=== PATIENT | male | born 1965 | race Caucasian/White ===

== ENCOUNTER 2024-01-09 21:18 | Inpatient (IN) | payer OTHER ==
[~2024-01-09] VITALS: Ht 177.8 cm; Wt 45.4 kg
[2024-01-09] MEDS: VANCOMYCIN 1,000 MG in DEXTROSE 5% 250 ML IV ONE (01:10)
[2024-01-09 21:18] VITALS: BP 120/70; PULSE 112; RESP 24; TEMP 99; O2SAT 98
[2024-01-09 21:40] VITALS: PULSE 126; RESP 23; O2SAT 97
[2024-01-09] MEDS ORDERED: cefTRIAXone 1,000 MG VIAL ONE (21:47)
[2024-01-09] MEDS: cefTRIAXone 1,000 MG in DEXT 5% MINI-BAG PLUS 50 ML IV ONE (22:07)
[2024-01-09] MEDS: NACL 0.9% 2,000 ML IV ONE (22:22)
[2024-01-09 22:29] LABS: CALCIUM 10.2 mg/dL (8.5-10.1); CARBON DIOXIDE 30.8 mmol/L (21-32); CREATININE 0.6 mg/dL (0.6-1.3); POTASSIUM 3.8 mmol/L (3.5-5.1)
[2024-01-09 22:49] LABS: BASOPHILS % (AUTO) 0.1 % (0.0-2.0); HEMATOCRIT 28.6 % (36-52); HEMOGLOBIN 9.3 g/dL (12.0-18.0); LYMPHOCYTES # (AUTO) 1.6 K/uL (2.0-11.5); LYMPHOCYTES % (AUTO) 11.7 % (20.5-51.1); MEAN CORPUSCULAR HEMOGLOBIN 26 pg (27-31); MEAN CORPUSCULAR HGB CONC 32 g/dL (33-37); MEAN CORPUSCULAR VOLUME 79.4 fL (80-94); MONOCYTES # (AUTO) 1.8 K/uL (0.8-1.0); MONOCYTES % (AUTO) 13.6 % (1.7-9.3); NEUTROPHILS # (AUTO) 10.1 K/uL (1.8-7.7); NEUTROPHILS % (AUTO) 74.6 % (42.2-75.2); PLATELET COUNT (AUTO) 215 K/uL (140-450); RED BLOOD CELL COUNT(AUTO) 3.61 MIL/uL (4.20-6.10); RED CELL DISTRIBUTION WIDTH 21.2 % (11.6-13.7); WHITE BLOOD COUNT (AUTO) 13.5 K/uL (4.8-10.8)
[2024-01-09 23:00] LABS: LACTIC ACID 1.6 mmol/L (0.4-2.0)
[2024-01-09 23:16] LABS: FLU A ANTIGEN negative (NEGATIVE); FLU B ANTIGEN NEGATIVE (NEGATIVE)
[2024-01-09] MEDS ORDERED: NOREPINEPHRINE 4 MG/4 ML VIAL IV ONE (23:16)
[2024-01-09] MEDS: NOREPINEPHRINE 4 MG in DEXTROSE 5% 250 ML IV ONE (23:48)
[2024-01-09] MEDS: MEROPENEM 1,000 MG in NACL 0.9% 50 ML IV ONE (23:50)
[2024-01-10] VITALS (16 sets, daily range): BP systolic 65–135; BP diastolic 41–81; PULSE 96–126; RESP 16–24; TEMP 97.8–99.8; O2SAT 97–100
[2024-01-10] MEDS: NOREPINEPHRINE 4 MG/4 ML VIAL IV ONE (00:01)
[2024-01-10 00:02] LABS: POIKILOCYTOSIS 1+
[2024-01-10 00:03] LABS: ANISOCYTOSIS 2+; HYPOCHROMASIA 1+
[2024-01-10] MEDS ORDERED: MEROPENEM 1,000 MG VIAL IV ONE (00:25)
[2024-01-10] MEDS ORDERED: VANCOMYCIN 1,000 MG VIAL ONE ×2 (00:25→13:35)
[2024-01-10] MEDS ORDERED: MORPHINE SULFATE 2 MG/ML SYR IVP PRN (02:35)
[2024-01-10] MEDS ORDERED: ONDANSETRON 4 MG/2 ML VIAL IVP PRN (02:35)
[2024-01-10] MEDS ORDERED: HYDROcodone/APAP 5/325 MG 1 TAB TAB PO PRN (02:35)
[2024-01-10] MEDS ORDERED: VANCOMYCIN PER PHARMACY MC PRN (02:35)
[2024-01-10] MEDS ORDERED: MAGNESIUM OXIDE 400 MG TAB PO PRN (02:35)
[2024-01-10] MEDS ORDERED: POTASSIUM CHLORIDE 10 MEQ TABER PO PRN (02:35)
[2024-01-10] MEDS ORDERED: ACET-2619 PO (02:47)
[2024-01-10] MEDS ORDERED: TYL650S RC (02:48)
[2024-01-10] MEDS ORDERED: LORA-476 PO (02:50)
[2024-01-10] MEDS ORDERED: DOCU50LI8 GT (03:34)
[2024-01-10] MEDS ORDERED: OMEP-303 GT (03:35)
[2024-01-10] MEDS ORDERED: METO10TA10 GT (03:35)
[2024-01-10] MEDS ORDERED: FERR-20 GT (03:35)
[2024-01-10] MEDS ORDERED: MIDO5TAB4 GT (03:35)
[2024-01-10] MEDS ORDERED: SENN-72 GT (03:35)
[2024-01-10] MEDS ORDERED: THIA500T9 PO (03:35)
[2024-01-10] MEDS ORDERED: ACET-9525 PO (03:35)
[2024-01-10] MEDS ORDERED: ASCO500T95 GT (03:35)
[2024-01-10 03:46] LABS: BLOOD GAS PH 7.475 (7.35-7.45)
[2024-01-10] MEDS: NACL 0.9% 1,000 ML IV SCH (03:46)
[2024-01-10 03:47] LABS: BLOOD GAS BASE EXCESS 4.6 mmol/L (-2.0-2.0); BLOOD GAS HCO3 28.5 mmol/L (22-26); BLOOD GAS O2 SAT% 97.9 % (92.0-98.5); BLOOD GAS PCO2 39.6 mmHg (35-45); BLOOD GAS PO2 99.4 mmHg (75-100)
[2024-01-10] MEDS ORDERED: NOREPINEPHRINE 4 MG/4 ML VIAL IV ONE (06:19)
[2024-01-10] MEDS: MEROPENEM 500 MG in NACL 0.9% 50 ML IV SCH (08:00)
[2024-01-10] MEDS ORDERED: MEROPENEM 500 MG VIAL IV ONE ×2 (09:16→11:12)
[2024-01-10] MEDS: VANCOMYCIN 1,000 MG in DEXTROSE 5% 250 ML IV SCH (13:00)
[2024-01-10] MEDS ORDERED: CRUSHER, PILL MC ONE (13:17)
[2024-01-10] MEDS: ACETAMINOPHEN 325 MG TAB PO PRN (13:36)
[2024-01-10 16:28] LABS: BILIRUBIN,URINE NEGATIVE (NEGATIVE); BLOOD, URINE NEGATIVE (NEGATIVE); LEUKOCYTE ESTERASE ,URINE NEGATIVE (NEGATIVE); NITRITE, URINE NEGATIVE (NEGATIVE); PROTEIN,URINE NEGATIVE (NEGATIVE); UGLUCOSE NEGATIVE (NEGATIVE)
[2024-01-10 16:29] LABS: APPEARANCE,URINE CLEAR (CLEAR); COLOR,URINE YELLOW (YELLOW)
[2024-01-10 18:13] LABS: BASOPHILS % (AUTO) 0.3 % (0.0-2.0); EOSINOPHILS % (AUTO) 0.2 % (0.0-4.0); HEMATOCRIT 21.4 % (36-52); HEMOGLOBIN 7.1 g/dL (12.0-18.0); LYMPHOCYTES % (AUTO) 22.5 % (20.5-51.1); MEAN CORPUSCULAR HEMOGLOBIN 26 pg (27-31); MEAN CORPUSCULAR HGB CONC 33 g/dL (33-37); MEAN CORPUSCULAR VOLUME 79.5 fL (80-94); MONOCYTES # (AUTO) 2.3 K/uL (0.8-1.0); MONOCYTES % (AUTO) 17.3 % (1.7-9.3); NEUTROPHILS # (AUTO) 7.8 K/uL (1.8-7.7); NEUTROPHILS % (AUTO) 59.7 % (42.2-75.2); PLATELET COUNT (AUTO) 225 K/uL (140-450); RED BLOOD CELL COUNT(AUTO) 2.69 MIL/uL (4.20-6.10); RED CELL DISTRIBUTION WIDTH 21.6 % (11.6-13.7); WHITE BLOOD COUNT (AUTO) 13.1 K/uL (4.8-10.8)
[2024-01-10 18:27] LABS: ANION GAP 9.7 (8-16); CALCIUM 8.3 mg/dL (8.5-10.1); CARBON DIOXIDE 28.4 mmol/L (21-32); CREATININE 0.3 mg/dL (0.6-1.3); POTASSIUM 3.1 mmol/L (3.5-5.1)
[2024-01-10] MEDS: NOREPINEPHRINE 8 MG in DEXTROSE 5% 250 ML IV PRN (19:18)
[2024-01-10] MEDS: MEDS-TO-BEDS MC SCH (20:08)
[2024-01-11] VITALS (31 sets, daily range): BP systolic 103–144; BP diastolic 64–96; PULSE 80–125; RESP 14–36; TEMP 97.6–99.6; O2SAT 95–100
[2024-01-11 06:43] LABS: BASOPHILS % (AUTO) 0.2 % (0.0-2.0); EOSINOPHILS % (AUTO) 0.3 % (0.0-4.0); HEMATOCRIT 21.3 % (36-52); LYMPHOCYTES # (AUTO) 2.7 K/uL (2.0-11.5); LYMPHOCYTES % (AUTO) 28.8 % (20.5-51.1); MEAN CORPUSCULAR HEMOGLOBIN 26 pg (27-31); MEAN CORPUSCULAR HGB CONC 33 g/dL (33-37); MEAN CORPUSCULAR VOLUME 79.2 fL (80-94); MONOCYTES # (AUTO) 1.7 K/uL (0.8-1.0); MONOCYTES % (AUTO) 17.4 % (1.7-9.3); NEUTROPHILS # (AUTO) 5.1 K/uL (1.8-7.7); NEUTROPHILS % (AUTO) 53.3 % (42.2-75.2); PLATELET COUNT (AUTO) 247 K/uL (140-450); RED BLOOD CELL COUNT(AUTO) 2.69 MIL/uL (4.20-6.10); RED CELL DISTRIBUTION WIDTH 21.9 % (11.6-13.7); WHITE BLOOD COUNT (AUTO) 9.5 K/uL (4.8-10.8)
[2024-01-11 07:04] LABS: ALBUMIN 2.4 g/dL (3.4-5.0); ANION GAP 11.3 (8-16); CALCIUM 8.7 mg/dL (8.5-10.1); CARBON DIOXIDE 26.6 mmol/L (21-32); CREATININE 0.3 mg/dL (0.6-1.3); MAGNESIUM 1.5 mg/dL (1.8-2.4); TOTAL BILIRUBIN 0.5 mg/dL (0.0-1.0); TOTAL PROTEIN, SERUM 7.4 g/dL (6.4-8.2)
[2024-01-11 07:11] LABS: POTASSIUM 2.9 mmol/L (3.5-5.1)
[2024-01-11] MEDS: PANTOPRAZOLE 40 MG INJ VIAL IVP SCH (08:32)
[2024-01-11] MEDS ORDERED: ENOXAPARIN 30 MG/0.3 ML SYR SUBQ SCH (09:00)
[2024-01-11] MEDS: KCL 20 MEQ IN 100 mL PREMIX 200 ML IV PRN (09:07)
[2024-01-11] MEDS: MIDODRINE 5 MG TAB GT SCH (12:03)
[2024-01-11] MEDS: MAG SULF 2000 MG/WATER PREMIX 50 ML IV SCH (12:04)
[2024-01-11] MEDS: VANCOMYCIN 1.25GM PREMIX 250 ML IV SCH (14:00)
[2024-01-11 19:35] LABS: BASOPHILS # (AUTO) 0.1 K/uL (0.00-0.22); BASOPHILS % (AUTO) 0.6 % (0.0-2.0); EOSINOPHILS % (AUTO) 0.5 % (0.0-4.0); HEMOGLOBIN 9.2 g/dL (12.0-18.0); LYMPHOCYTES # (AUTO) 1.8 K/uL (2.0-11.5); LYMPHOCYTES % (AUTO) 16.2 % (20.5-51.1); MEAN CORPUSCULAR HEMOGLOBIN 27 pg (27-31); MEAN CORPUSCULAR HGB CONC 34 g/dL (33-37); MEAN CORPUSCULAR VOLUME 80.5 fL (80-94); MONOCYTES # (AUTO) 1.2 K/uL (0.8-1.0); MONOCYTES % (AUTO) 10.9 % (1.7-9.3); NEUTROPHILS # (AUTO) 7.8 K/uL (1.8-7.7); NEUTROPHILS % (AUTO) 71.8 % (42.2-75.2); PLATELET COUNT (AUTO) 223 K/uL (140-450); RED BLOOD CELL COUNT(AUTO) 3.36 MIL/uL (4.20-6.10); WHITE BLOOD COUNT (AUTO) 10.9 K/uL (4.8-10.8)
[2024-01-12] VITALS (18 sets, daily range): BP systolic 91–127; BP diastolic 56–77; PULSE 87–123; RESP 16–51; TEMP 97.7–100; O2SAT 95–100
[2024-01-12 05:29] LABS: BASOPHILS % (AUTO) 0.2 % (0.0-2.0); EOSINOPHILS % (AUTO) 0.2 % (0.0-4.0); HEMATOCRIT 26.7 % (36-52); LYMPHOCYTES # (AUTO) 2.1 K/uL (2.0-11.5); MEAN CORPUSCULAR HEMOGLOBIN 27 pg (27-31); MEAN CORPUSCULAR HGB CONC 34 g/dL (33-37); MEAN CORPUSCULAR VOLUME 80.6 fL (80-94); MONOCYTES # (AUTO) 1.4 K/uL (0.8-1.0); MONOCYTES % (AUTO) 13.8 % (1.7-9.3); NEUTROPHILS # (AUTO) 6.8 K/uL (1.8-7.7); NEUTROPHILS % (AUTO) 65.8 % (42.2-75.2); PLATELET COUNT (AUTO) 223 K/uL (140-450); RED BLOOD CELL COUNT(AUTO) 3.31 MIL/uL (4.20-6.10); RED CELL DISTRIBUTION WIDTH 20.9 % (11.6-13.7); WHITE BLOOD COUNT (AUTO) 10.3 K/uL (4.8-10.8)
[2024-01-12 06:18] LABS: ALBUMIN 2.3 g/dL (3.4-5.0); ANION GAP 13.6 (8-16); CALCIUM 8.4 mg/dL (8.5-10.1); CARBON DIOXIDE 26.2 mmol/L (21-32); CREATININE 0.4 mg/dL (0.6-1.3); MAGNESIUM 1.5 mg/dL (1.8-2.4); TOTAL BILIRUBIN 1.2 mg/dL (0.0-1.0); TOTAL PROTEIN, SERUM 7.2 g/dL (6.4-8.2)
[2024-01-12 06:21] LABS: POTASSIUM 2.8 mmol/L (3.5-5.1)
[2024-01-12] MEDS: MAG SULF 2000 MG/WATER PREMIX 50 ML IV PRN (09:56)
[2024-01-12] MEDS: MAG SULF 2000 MG/WATER PREMIX 50 ML IV SCH (12:22)
[2024-01-12] MEDS: POTASSIUM CHLORIDE 20% 40 MEQ/15 ML UDC GT SCH (12:23)
[2024-01-12] MEDS ORDERED: THERAHONEY GEL 42.5 GM TP PRN (14:35)
[2024-01-12] MEDS ORDERED: HYDRAGUARD CREAM TP PRN (14:35)
[2024-01-12] MEDS ORDERED: HYDROCOLLOID DRESSING TP PRN (14:35)
[2024-01-13] VITALS (16 sets, daily range): BP systolic 86–115; BP diastolic 52–71; PULSE 77–101; RESP 16–36; TEMP 97.4–98.9; O2SAT 100
[2024-01-13] MEDS: HYDRAGUARD CREAM TP SCH (00:52)
[2024-01-13 05:54] LABS: BASOPHILS % (AUTO) 0.3 % (0.0-2.0); EOSINOPHILS # (AUTO) 0.2 K/uL (0-0.4); EOSINOPHILS % (AUTO) 2.9 % (0.0-4.0); LYMPHOCYTES # (AUTO) 1.5 K/uL (2.0-11.5); LYMPHOCYTES % (AUTO) 24.3 % (20.5-51.1); MEAN CORPUSCULAR HEMOGLOBIN 27 pg (27-31); MEAN CORPUSCULAR HGB CONC 34 g/dL (33-37); MEAN CORPUSCULAR VOLUME 81.3 fL (80-94); MONOCYTES % (AUTO) 16.1 % (1.7-9.3); NEUTROPHILS # (AUTO) 3.6 K/uL (1.8-7.7); NEUTROPHILS % (AUTO) 56.4 % (42.2-75.2); PLATELET COUNT (AUTO) 212 K/uL (140-450); RED BLOOD CELL COUNT(AUTO) 2.95 MIL/uL (4.20-6.10); RED CELL DISTRIBUTION WIDTH 20.3 % (11.6-13.7); WHITE BLOOD COUNT (AUTO) 6.4 K/uL (4.8-10.8)
[2024-01-13 06:23] LABS: ANION GAP 13.4 (8-16); CALCIUM 7.9 mg/dL (8.5-10.1); CREATININE 0.3 mg/dL (0.6-1.3); MAGNESIUM 1.7 mg/dL (1.8-2.4); POTASSIUM 3.4 mmol/L (3.5-5.1); TOTAL BILIRUBIN 0.6 mg/dL (0.0-1.0); TOTAL PROTEIN, SERUM 6.5 g/dL (6.4-8.2)
[2024-01-13] MEDS: THERAHONEY GEL 42.5 GM TP SCH (13:00)
[2024-01-13] MEDS ORDERED: MERO500V16 IV (13:24)
[2024-01-13] MEDS: ALBUTEROL SULFATE/IPRATROPIU 3 ML SOL IH SCH (13:42)
[2024-01-13] MEDS: ALBUTEROL SULFATE/IPRATROPIU 3 ML SOL IH PRN (15:53)
[2024-01-15] MEDS ORDERED: HYDROCOLLOID DRESSING TP SCH (13:00)
== END 2024-01-13 18:35 | DRG 720 ==
LOC: MED 21:18 → MMU 01-10 02:40 → MIC 01-10 14:25
PROVIDERS: ADMIT Student in an Organized Health Care Education/Training Program; ATTEND Student in an Organized Health Care Education/Training Program
PROC: 5A1945Z Respiratory Ventilation, 24-96 Consecutive Hours (ICD-10-PCS; principal; 2024-01-09)
PROC: 02HV33Z Insertion of Infusion Device into Superior Vena Cava, Percutaneous Approach (ICD-10-PCS; 2024-01-09)
PROC: 30233N1 Transfusion of Nonautologous Red Blood Cells into Peripheral Vein, Percutaneous Approach (ICD-10-PCS; 2024-01-11)
DX: A41.9 Sepsis, unspecified organism (principal); J96.21 Acute and chronic respiratory failure with hypoxia; R65.21 Severe sepsis with septic shock; J18.9 Pneumonia, unspecified organism; L89.159 Pressure ulcer of sacral region, unspecified stage; E86.1 Hypovolemia; J44.0 Chronic obstructive pulmonary disease with (acute) lower respiratory infection; K21.9 Gastro-esophageal reflux disease without esophagitis; Z20.822 Contact with and (suspected) exposure to COVID-19; D72.829 Elevated white blood cell count, unspecified; Z79.1 Long term (current) use of non-steroidal anti-inflammatories (NSAID); Z79.899 Other long term (current) drug therapy; Z93.0 Tracheostomy status; Z74.01 Bed confinement status; Z93.1 Gastrostomy status
CPT/HCPCS: 36415; 36600; 71045; 80048; 80053; 80202; 81003; 82803; 83605; 83735; 83880; 84484; 85025; 86886; 86900; 86901; 86920; 87040; 87070; 87081; 87086; 87186; 87205; 89220; 93005; 94002; 94003; 94640; 96361; 96365; 96375; 99291; C9113; J0696; J1644; J2185; J3370; J3372; J3475; J3480; J3490; J7030; J7060; P9016; Q0092